=== PATIENT | female | born 1965 | race Hispanic/Latino ===

== ENCOUNTER 2022-01-30 14:28 | Outpatient (CLI) | payer OTHER ==
[2022-01-24 15:41] LABS: Blood Urea Nitrogen 12 mg/dL (7-17)
--- NOTE | 2022-01-30 17:03 | Cat Scan Report ---
CTA CHEST WITH CONTRAST INDICATION / CLINICAL INFORMATION: R06.02 SOB. TECHNIQUE: Axial CT images were obtained through the chest after injection of 65 cc Omni 350 IV contr ast. 3 plane MIP and/or 3D reconstructions were produced. All CT scans at this location are performed using CT dose reduction for ALARA by means of automated exposure control. COMPARISON: None available. FINDINGS: PULMONARY EMBOLUS: None. THORACIC AORTA: No significant abnormality. HEART: No significant abnormality. CORONARY ARTERY CALCIFICATION: Absent -- None. MEDIASTINUM / VIELKA: No significant abnormality. PLEURA: No pleural effusion. No pneumothorax. LUNGS: No acute air space or interstitial disease. ADDITIONAL FINDINGS: None. UPPER ABDOMEN: No acute findings. SKELETAL STRUCTURES: No significant osseous abnormality. IMPRESSION: 1. No CT evidence for pulmonary embolism. 2. No acute findings. Signer Name: Dio Pinto MD Signed: 01/30/2022 4:59 PM Workstation Name: [id number]
== END 2022-01-30 14:29 | disposition home or self-care (01) ==
LOC: CT 14:28
DX: R06.02 Shortness of breath (principal)
CPT/HCPCS: 36415; 71275; 82565; 84520; Q9967